=== PATIENT | female | born 1965 | race Caucasian/White ===

== ENCOUNTER → 2017-04-11 09:04 | Outpatient (CLI) | payer OTHER, SELFPAY ==
--- NOTE | 2017-04-11 09:07 | HPBD_ITS ---
STUDY: DUAL ENERGY X-RAY ABSORPTIOMETRY / DXA REASON FOR EXAM: Female, 51 years old. The patient is postmenopausal. No loss of height. TECHNIQUE: Bone Mineral Density (BMD) measurements of lumbar spine and bilateral hips were obtained. COMPARISON: None. FINDINGS: Lumbar Spine (L1-L4): g/cm2 (1.160) / T-score (-0.2) / Z-score (0.5) Findings are suggestive of normal bone density with a low fracture risk. Left Femur Total: g/cm2 (0.954) / T-score (-0.4) / Z-score (0.2) Left Femoral Neck: g/cm2 (0.876) / T-score (-1.2) / Z-score (-0.2) Right Femur Total: g/cm2 (0.965) / T-score (-0.3) / Z-score (0.3) Right Femoral Neck: g/cm2 (0.917) / T-score (-0.9) / Z-score (0.1) HPBD/Dexa Bone Density Study (HP) IMPRESSION: The patient is considered osteopenic as outlined below according to World [employer]ami[employer] Organization (WHO) criteria with a low fracture risk. Reference Information: The T-score is the number of standard deviations above or below the standard which is normal for young adults at their peak bone mineral density. The World Health Organization (WHO) interprets the T-scores as follows: Above -1 Normal bone density Between -1 and -2.5 Osteopenia Equal to / or below -2.5 Osteoporosis As a practical clinical guideline, osteopenia may be graded as follows: Mild -1 through -1.5 Moderate -1.6 through -2.0 Severe -2.1 through -2.4 The Z-score is the number of standard deviations above or below age-matched controls. A Z-score of less than -1.5 would be considered abnormal. References: 1. NIH Osteoporosis and Related Bone Diseases http://www.osteo.org 2. International Society for Clinical Densitometry http://www.iscd.org 3. National Osteoporosis Foundation http://www.nof.org Electronically Signed: Aurelio Becerril MD at 9:53 EST Tel [phone], Service support ,
== END ==
PROVIDERS: Family Provider Nurse Practitioner; PCP Nurse Practitioner; Visit Provider Nurse Practitioner
DX: Z78.0 Asymptomatic menopausal state (principal)
CPT/HCPCS: 77080

== ENCOUNTER 2018-07-15 23:45 | Emergency (ER) | payer OTHER, SELFPAY ==
[2018-07-15 23:46] VITALS: BP 130/79; PULSE 77; RESP 16; TEMP 36.7; O2SAT 96; BMI 26.1
[2018-07-16 01:17] LABS: Absolute Lymphocyte Count 0.56 X10^3/ul (0.83-4.51); Absolute Neutrophil Count 4.4 X10^3/uL (2.0-7.7); Basophil# 0.01 X10^3/uL; Basophil% 0.2 % (0-1); Hematocrit 45.2 % (37-47); Hemoglobin 15.7 g/dl (12.0-15.0); Lymphocyte # 0.56 X10^3/ul (4.0); Lymphocyte % 10.5 % (19-41); Mean Corp Hgb Conc 34.7 g/gl (32-36); Mean Corpuscular Hgb 29.4 pg (27.0-32.0); Mean Corpuscular Volume 84.6 fL (81-99); Mean Platelet Vol. 10.1 fl (6.2-12.0); Monocyte# 0.37 X10^3/uL; Monocyte% 6.9 % (0-10); Neutrophil % 82.2 % (47-70); Platelet Count 223 K/mm3 (150-450); RBC Distribution Width CV 12.8 % (11.6-14.6); RBC Distribution Width SD 39.6 fl (35.1-43.9); Red Blood Count 5.34 M/mm3 (4.2-5.4); White Blood Count 5.4 K/mm3 (4.4-11.0)
[2018-07-16 01:18] LABS: Differential Indicated SCAN CRITERIA MET; POSITIVE COUNT NO; POSITIVE DIFFERENTIAL YES; POSITIVE MORPHOLOGY NO
[2018-07-16 01:22] LABS: AST(SGOT) 29 U/L (15-37); Alanine Aminotransfer ALT/SGPT 36 U/L (13-56); Albumin, Serum 3.7 g/dL (3.2-5.0); Alkaline Phosphatase 62 U/L (45-117); Anion Gap 6 (5-15); BUN 25 mg/dL (7-18); BUN/Creat Ratio 25.9 RATIO (10-20); Calcium,Total 8.5 mg/dL (8.5-10.1); Chloride 104 mmol/L (98-107); Creatinine, Serum 0.96 mg/dL (0.55-1.02); EST Glomerular Filtration Rate 64 mL/min (>60); Est Glom Filt Rate - Afr Amer 77 mL/min (>60); Estimated Creatinine Clearance 61.99 ml/min; Globulin 3.6 g/dL (2.2-4.2); Glucose 161 mg/dL (74-106); Lipase 78 U/L (73-393); Potassium 3.7 mmol/L (3.5-5.1); Protein, Total 7.3 g/dL (6.4-8.2); Sodium Level 136 mmol/L (136-145)
--- NOTE | 2018-07-16 02:01 | ED.DEP ---
ED Disposition - Plan for ED Patient: Instructions: ED Food Poison Or Gastroenteritis Prescriptions: Ondansetron [Zofran Odt] 4 mg PO Q8H PRN PRN #10 tab PRN Reason: Nausea Referrals: Katerina Abdullahi NP-C [Primary Care Provider] -
--- NOTE | 2018-07-16 02:27 | ED.DCSUM_ITS ---
- ER Visit Summary Date of Service: 07/16/18 Chief Complaint: Abdominal pain History of Present Illness: The patient is a 53 F who presents with abdominal pain. She was at a [employer] a few days ago in which multiple people developed a gastroenteritis-like illness with vomiting and diarrhea. The next day yesterday she developed nausea and vomited last night. She then had one episode this evening before coming in. She also developed abdominal pain which she describes as more dull is located in the epigastrium and left upper quadrant. This comes and goes. At the time of my evaluation she is actually pain-free and is not nauseated. Physical Examination: Afebrile vitals normal Resting comfortably Moist mucous membranes Heart regular rate and rhythm Lungs clear Abdomen soft nontender nondistended Alert Test Results: CBC CMP lipase are normal. Emergency Department Course and Treatment: Initial IV start attempt was inadvertently an arterial stick. Laboratory studies were obtained. I discussed with the patient that we could attempt another IV for IV fluids or given that she is asymptomatic just monitor her symptoms and await laboratory results. Patient agrees with just waiting for results at this time. Results as above are unremarkable and on reevaluation the patient is still asymptomatic with no complaints. I explained this is most likely related to foodborne illness or viral gastroenteritis and is self-limiting. She was advised on signs and symptoms to monitor for. She was given a prescription for Zofran for if needed. She understands to return for new or worsening symptoms and was discharged home. Treatment Plan: [] Disposition: Discharge Impression: Abdominal pain Gastroenteritis This note was generated with [employer] dictation software. It may contain incorrect words, spelling, and punctuation that were not noted in review of the chart prior to signing ED Disposition - Plan for ED Patient: Instructions: ED Food Poison Or Gastroenteritis Prescriptions: Ondansetron [Zofran Odt] 4 mg PO Q8H PRN PRN #10 tab PRN Reason: Nausea Referrals: Katerina Abdullahi, LAWANDA-C [Primary Care Provider] -
== END 2018-07-16 02:33 | disposition home or self-care (01) ==
PROVIDERS: Emergency Provider Emergency Medicine; Family Provider Nurse Practitioner; PCP Nurse Practitioner
DX: K52.9 Noninfective gastroenteritis and colitis, unspecified (principal); R10.12 Left upper quadrant pain; R10.13 Epigastric pain
CPT/HCPCS: 80053; 83690; 85025; 99282; J7030; A4216

== ENCOUNTER 2018-07-16 22:25 | Emergency (ER) | payer OTHER, SELFPAY ==
[2018-07-15 23:46] VITALS: BMI 26.1
[2018-07-16 22:25] VITALS: BP 150/76; PULSE 66; RESP 18; TEMP 36.2; O2SAT 97; BMI 25.8
[2018-07-16 22:54] LABS: Bacteria 0 SEEN /hpf (None Seen); Mucous, Urine 0 SEEN /hpf (<or=2+)
[2018-07-16 23:01] LABS: Absolute Lymphocyte Count 1.16 X10^3/ul (0.83-4.51); Absolute Neutrophil Count 3.4 X10^3/uL (2.0-7.7); Basophil# 0.02 X10^3/uL; Basophil% 0.4 % (0-1); Eosinophil# 0.07 X10^3/uL; Eosinophils% 1.3 % (0-5); Hematocrit 46.2 % (37-47); Hemoglobin 15.9 g/dl (12.0-15.0); Lymphocyte # 1.16 X10^3/ul (4.0); Lymphocyte % 22.2 % (19-41); Mean Corp Hgb Conc 34.4 g/gl (32-36); Mean Corpuscular Hgb 30.1 pg (27.0-32.0); Mean Corpuscular Volume 87.3 fL (81-99); Mean Platelet Vol. 9.7 fl (6.2-12.0); Monocyte# 0.57 X10^3/uL; Monocyte% 10.9 % (0-10); POSITIVE COUNT NO; POSITIVE DIFFERENTIAL NO; POSITIVE MORPHOLOGY NO; Platelet Count 209 K/mm3 (150-450); RBC Distribution Width CV 12.9 % (11.6-14.6); RBC Distribution Width SD 41.2 fl (35.1-43.9); Red Blood Count 5.29 M/mm3 (4.2-5.4); White Blood Count 5.2 K/mm3 (4.4-11.0)
[2018-07-16 23:04] LABS: Color, Urine Yellow (Yellow); Glucose, Dipstick Normal (Normal); Ketone-Dipstick 5 mg/dl (Negative); Leukocyte Esterase-Dipstick 25 /ul (Negative); Nitrite-Dipstick Negative (Negative); Occult Blood-Urine 250 /ul (Negative); Protein-Dipstick 30 mg/dl (Negative); Urine Bilirubin Dipstick Negative (Negative); Urine Clarity Cloudy (Clear); Urine Urobilinogen 1 mg/dl (Normal)
[2018-07-16 23:08] LABS: Anion Gap 5 (5-15); BUN 23 mg/dL (7-18); BUN/Creat Ratio 22.8 RATIO (10-20); Calcium,Total 8.5 mg/dL (8.5-10.1); Chloride 102 mmol/L (98-107); Creatinine, Serum 1.01 mg/dL (0.55-1.02); EST Glomerular Filtration Rate 60 mL/min (>60); Est Glom Filt Rate - Afr Amer 73 mL/min (>60); Estimated Creatinine Clearance 58.92 ml/min; Glucose 136 mg/dL (74-106); Potassium 3.3 mmol/L (3.5-5.1); Sodium Level 138 mmol/L (136-145)
[2018-07-16 23:10] LABS: Calcium Oxalate Crystals Ur 1+ /hpf (<or=2+); White Blood Cells 0-5 SEEN /hpf (0-5)
[2018-07-16] MEDS: Morphine 4 MG/ML Syringe IV (23:10)
[2018-07-16] MEDS: 0.9% Normal Saline 1,000 ML 999 ML IV (23:10)
[2018-07-16] MEDS: Ondansetron 4 MG/2 ML Vial IV (23:11)
[2018-07-16 23:12] LABS: Squamous Epithelial Cells - UA 0-5 SEEN /hpf (5-10); Transitional Epithelial - Ur 0-5 SEEN /hpf (0-5)
[2018-07-16 23:13] LABS: Red Blood Cells-Urine > 100 SEEN /hpf (0-5)
--- NOTE | 2018-07-16 23:17 | CT_ITS ---
STUDY: CT ABDOMEN AND PELVIS WITHOUT CONTRAST REASON FOR EXAM: Female, 53 years old. Left-sided flank pain. RADIATION DOSAGE (If Supplied By Facility): CTDIvol = ( 7.08 ) mGy, DLP = ( 332.34 ) mGycm TECHNIQUE: Transaxial images were obtained from the dome of the diaphragm to the symphysis pubis without oral contrast, and without intravenous contrast. Sagittal and coronal images were reconstructed. Individualized dose optimization techniques were used for this CT. COMPARISON: Prior comparison studies are not available for review at this time. FINDINGS: The visualized lung bases are unremarkable. The visualized portions of the heart are within normal limits. There appears to be a large cyst within the left lobe of the liver measuring approximately 3.5 cm in greatest dimension. This has attenuation of approximately 0 Hounsfield units. Normal gallbladder and extrahepatic biliary system. Normal spleen. Normal pancreas. Normal bilateral adrenal glands. There are bilateral nonobstructing renal calculi. There is moderate left-sided hydronephrosis and hydroureter. There are nonobstructing renal calculi measuring up to 4 mm in greatest dimension. There is moderate left-sided hydronephrosis and hydroureter secondary to a mid ureteral calculus measuring approximately 7 mm in greatest dimension. Normal visualized stomach. There is no evidence for dilated bowel, ascites or pneumoperitoneum. Small bowel has a grossly normal appearance. Stool is visible throughout the colon with scattered diverticula. The appendix is visualized and appears normal. Normal abdominal aorta. Normal inferior vena cava. Normal retroperitoneum. Normal urinary bladder. Normal visualized uterus. Normal abdominal wall. Normal osseous structures. CT/Abdomen/Pelvis without Cont IMPRESSION: 1. Moderate left-sided hydronephrosis and hydroureter secondary to mid ureteral calculus. 2. Bilateral nonobstructing renal calculi. 3. Hepatic cyst. Electronically Signed: Maribel Lewis MD at 0:40 EDT , Service support ,
[2018-07-16 23:28] VITALS: RESP 16
--- NOTE | 2018-07-16 23:34 | ED.DCSUM_ITS ---
- ER Visit Summary Date of Service: 07/16/18 Chief Complaint: Flank pain, abdominal pain History of Present Illness: The patient is a 53 F presents to the emergency department for left-sided flank pain. Patient was in her normal state of health. She had a enteritis type illness over the weekend. She was actually seen here yesterday. At that time, she was treated with fluids and antiemetics. Her labs were unremarkable. She was feeling improved and was discharged home. She states today, she had a rather sudden, sharp, stabbing pain in her left flank that radiated to her left lower quadrant. She was nauseated without vomiting. She states this is different than the pain that she had over the we ekend. She is otherwise healthy. She has no history of kidney stone. She has no history of prior surgery. Physical Examination: Vital signs reviewed General: Well-nourished, well-developed Head: Normocephalic, atraumatic Eyes: Pupils equal and reactive, extraocular muscles intact Neck, supple, no lymphadenopathy Heart: Regular rate and rhythm Respiratory: No distress, clear bilaterally Abdomen: Soft, nontender, nondistended, no peritoneal signs Back: Nontender Extremities: Nontender, no edema, no cords Skin: Normal color no rash Neuro: Alert and oriented, no focal or lateralizing deficits Test Results: [] Emergency Department Course and Treatment: The patient presents with flank pain. IV was established. She was given fluids and analgesics. She had total resolution of her pain. Labs are unremarkable. CT does demonstrate what appears to be 2 stones in the mid left ureter approximately 7 mm in total diameter. Again, the patient is now pain-free. She will be prescribed analgesics and antiemetics. She will be given outpatient urology follow-up. She does not have a fever. Her pain is controlled. I do feel that outpatient therapy is reasonable. She was counseled on concerning symptoms and reasons to return. She will be discharged home. Treatment Plan: [] Disposition: Discharge Impression: 1. Left urolithiasis This note was generated with [employer] dictation software. It may contain incorrect words, spelling, and punctuation that were not noted in review of the chart prior to signing ED Disposition - Plan for ED Patient: Instructions: ED Stone Renal W Colic Prescriptions: Hydrocodone Bitart/Apap 5-325 [[place] 5MG-325MG] 1 tab PO Q6H PRN PRN 3 Days #10 tab PRN Reason: Pain Ondansetron [Zofran Odt] 4 mg PO Q8H PRN PRN #10 tab PRN Reason: Nausea Referrals: Lynette Kauffman MD [STAFF PHYSICIAN] - Flakito Wei MD [STAFF PHYSICIAN] -
[2018-07-17 01:10] VITALS: BP 142/87; PULSE 59; RESP 18; O2SAT 98
--- NOTE | 2018-07-17 01:12 | ED.RN ---
FOUR NORCO AND FOUR ZOFRAN GIVEN TO PT IN HOME PACK.
== END 2018-07-17 01:11 | disposition home or self-care (01) ==
LOC: ED 23:14
PROVIDERS: Emergency Provider Emergency Medicine; Family Provider Nurse Practitioner; PCP Nurse Practitioner
DX: N13.2 Hydronephrosis with renal and ureteral calculous obstruction (principal)
CPT/HCPCS: 74176; 80048; 81001; 85025; 96361; 96374; 96375; 99283; J2405

== ENCOUNTER 2018-07-23 12:02 | Day surgery (SDC) | payer OTHER, SELFPAY ==
[2018-07-23 12:20] VITALS: BP 144/83; PULSE 72; RESP 18; TEMP 37; O2SAT 100; BMI 25.6
--- NOTE | 2018-07-23 12:46 | OP.PCM_ITS ---
Problem List (1) Left ureteral calculus Status: Acute Report of Operation Date of Procedure: 07/23/18 Pre-Operative Diagnosis: left ureteral calculus Post-Operative Diagnosis: same Surgery/Procedure Performed:: cystoscopy, left ureteroscopy holmium laser lithotripsy, stone basket extraction and left ureteral stent insertion Description of Surgical Findings:: Mid left ureteral calculus approximately 7 to 8 mm in size. Removed with a large fragment sent for analysis. 6 x 24 double-J stent in good position. Type of Anesthesia:: General Specimen's removed: Stone fragment Description of Procedure: The patient is a 53-year-old female who developed acute onset left flank pain associated with abdominal pain, nausea and vomiting. She was evaluated with a CT scan and found to have a 7 mm left mid ureteral calculus. After obtaining informed consent, the patient was scheduled for cystoscopy, ureteroscopy laser lithotripsy and stent insertion. The patient was taken to the operating room and placed on the operating room table. Anesthesia monitored the head, neck, airway, IV access and vital signs throughout the case. Once anesthesia was a probably administered, the patient was placed into dorsal lithotomy position and was prepped and draped in usual sterile fashion. A cystourethroscopy revealed no abnormal bladder or urethral mucosa. Bilateral ureteral orifices were located on the area of the trigone. The left ureteral orifice was intubated with a 0.035 Glidewire which easily went into the renal pelvis or on fluoroscopic visualization. Using the help of a 0.025 Glidewire, the semirigid ureteroscope was inserted through the left ureter to the level of the stone which was identified and lasered into small pieces. 1 of the fragments was removed with a stone basket and sent for analysis. After this there is one further stone fragment that was ushered into the bladder. A 6 [place] 24 cm double-J stent was then inserted into the left ureter the tip of which went all the way into the ureter and was retrieved using the stone basket. It was then curled in the urinary bladder as well is the renal pelvis. The patient's bladder was emptied and she was awakened and taken to the recovery room in good condition. There were no complications during the procedure. Grafts/Implants Used: 6 x 24 double-J stent - Complications None - Admit VTE Documentation VTE Present on Admission: Yes VTE Mechan Device Prophylaxis: SCD's VTE Pharm Prophylaxis ordered?: No Reason prophylaxis not ordered:: Treatment Not Indicated
--- NOTE | 2018-07-23 12:47 | DCINST_ITS ---
Discharge Diet: No Restrictions Discharge Activity: May not drive while taking narcotic pain medications. May resume sexual activity in: 1 week Call your doctor if you observe: Fever of 101 or Higher, Inability to urinate, Shortness of breath, Chest pain, Calf discomfort, Uncontrolled pain Allergies/Adverse Reactions: Allergies No Known Allergies Allergy (Verified 07/22/18 11:44) Medications to take at Discharge Hydrocodone/Acetaminophen [[place] 5-325 Tablet] 1 each PO PRN PRN 07/22/18 Phenazopyridine HCl [Pyridium] 200 mg PO TID PRN PRN 7 Days #30 tab 07/23/18 Smz/Tmp Ds [Bactrim Ds] 1 tab PO BID 3 Days #6 tab 07/23/18 The following prescriptions were given: Phenazopyridine HCl [Pyridium] 200 mg PO TID PRN PRN 7 Days #30 tab PRN Reason: Bladder Spasms Smz/Tmp Ds [Bactrim Ds] 1 tab PO BID 3 Days #6 tab Primary Care Physician: Katerina Abdullahi NP-C [Primary Care Provider] - Test Results: Test results from this visit will be discussed in further detail at your follow- up appointment, if applicable. Please Follow Up With: Lynette Kauffman MD When: call office for appt for stent removal on Proposed Discharge Date: 07/23/18
[2018-07-23] MEDS: Cefazolin 2 GM in 0.9% Normal Saline 100 ML IV (13:02)
[2018-07-23 14:18] VITALS: BP 136/73; BP 144/83; PULSE 69; RESP 16; TEMP 36; O2SAT 94
[2018-07-23 14:30] VITALS: BP 106/74; BP 144/83; PULSE 62; RESP 16; O2SAT 98
[2018-07-23 14:45] VITALS: BP 115/77; BP 144/83; PULSE 61; RESP 16; TEMP 36.1; O2SAT 96
[2018-07-23 15:46] VITALS: BP 129/71; BP 144/83; PULSE 64; RESP 16; TEMP 36.6; O2SAT 99
== END 2018-07-23 16:02 | disposition home or self-care (01) ==
LOC: SDC 12:02 → AC 12:03
PROVIDERS: Family Provider Nurse Practitioner; PCP Nurse Practitioner; Referring Provider Urology; Visit Provider Urology
PROC: 0TJ98ZZ Inspection of Ureter, Via Natural or Artificial Opening Endoscopic (ICD-10-PCS; CPT 52352; principal; 2018-07-23 13:55)
DX: N13.2 Hydronephrosis with renal and ureteral calculous obstruction (principal); M54.5 Low back pain
CPT/HCPCS: 52356; 76000; J7120; C1769; C2617; J2405

== ENCOUNTER → 2023-10-25 | Outpatient (CLI) | payer OTHER, SELFPAY ==
--- NOTE | 2023-10-25 14:34 | BI_ITS ---
MAMMOGRAPHY - BILATERAL SCREENING REASON FOR EXAM: Female, 58 years old. Routine annual screening examination. PERTINENT HISTORY: Sister with breast cancer. Mother with breast cancer. Aunt with breast cancer. TECHNIQUE: Digital bilateral breast andrew (3D mammographic acquisition) in the CC and MLO projections. 2-D mediolateral oblique (MLO) and craniocaudad (CC) views of both breasts were obtained. CAD: Full Field Digital Mammography with Computer Added Detection was performed. COMPARISON: Comparison is made with prior study dated March 15, 2017. FINDINGS: Breast Composition: The breasts are heterogeneously dense, which may obscure small masses. There are no dominant masses or suspicious calcifications. A tissue clip marker is seen in the central anterior medial aspect of the left breast. No other significant abnormalities are identified. There has been no significant change since the prior study. BI/SCRN MAMM (CAD)W/ANDREW BILAT IMPRESSION: Stable bilateral screening mammogram. Yearly follow-up mammogram recommended. (A) ASSESSMENT CATEGORY: BIRADS Category 2: Benign. A letter regarding these results will be sent to the patient by the facility within 30 days. Approximately 10% of breast cancers are not detected by mammography. A normal mammogram should not delay biopsy of a clinically suspicious abnormality. [id number] Electronically Signed: Aurelio Becerril MD at 15:21 EDT ,
--- NOTE | 2023-10-25 14:36 | BD_ITS ---
STUDY: DUAL ENERGY X-RAY ABSORPTIOMETRY / DXA REASON FOR EXAM: Female, 58 years old. [id number]. -- Postmenopausal status TECHNIQUE: Bone Mineral Density (BMD) measurements of lumbar spine and bilateral hips were obtained. COMPARISON: Comparison is made with prior study dated October 09, 2017. FINDINGS: Lumbar Spine (L1-L4): g/cm2 (0.928) / T-score (-1.1) / Z-score (0.4) Findings are suggestive of osteopenia with a low fracture risk. Left Femur Total: g/cm2 (0.841) / T-score (-0.8) / Z-score (0.1) Left Femoral Neck: g/cm2 (0.680) / T-score (-1.5) / Z-score (-0.2) Right Femur Total: g/cm2 (0.832) / T-score (-0.9) / Z-score (0.1) Right Femoral Neck: g/cm2 (0.721) / T-score (-1.2) / Z-score (0.1) The T-Scores on the most recent prior examination were: Lumbar Spine (L1-L4): There has been worsening of bone density since the previous examination. Left Femur Total: which represents a worsening of 5.4%. Right Femur Total: which represents a worsening of 7.6%. BD/Dexa Bone Density Study IMPRESSION: The patient is considered osteopenic as outlined below according to World [employer] Organization (WHO) criteria with a low fracture risk. There has been worsening of bone density since the previous examination. Reference Information: The T-score is the number of standard deviations above or below the standard which is normal for young adults at their peak bone mineral density. The World Health Organization (WHO) interprets the T-scores as follows: Above -1 Normal bone density Between -1 and -2.5 Osteopenia Equal to / or below -2.5 Osteoporosis As a practical clinical guideline, osteopenia may be graded as follows: Mild -1 through -1.5 Moderate -1.6 through -2.0 Severe -2.1 through -2.4 The Z-score is the number of standard deviations above or below age-matched controls. A Z-score of less than -1.5 would be considered abnormal. References: 1. NIH Osteoporosis and Related Bone Diseases www osteo.org 2. International Society for Clinical Densitometry www iscd.org 3. National Osteoporosis Foundation www nof.org Electronically Signed: Aurelio Becerril MD at 7:59 EDT ,
== END | disposition home or self-care (01) ==
PROVIDERS: PCP Nurse Practitioner Family; Referring Provider Nurse Practitioner Family; Visit Provider Nurse Practitioner Family
DX: Z78.0 Asymptomatic menopausal state (principal); Z12.31 Encounter for screening mammogram for malignant neoplasm of breast
CPT/HCPCS: 77063; 77067; 77080